=== PATIENT | female | born 1980 | race Caucasian/White ===

== ENCOUNTER → 2016-07-05 | Outpatient (CLI) | payer OTHER ==
[~2016-07-05] VITALS: Ht 170.2 cm; Wt 118.8 kg
[~2016-07-05] MED LIST: ALBUAER2 INH; BUSP15TA70 PO; CLOP1TAB5 PO; ESCI1TAB6 PO; HYDR-5688 PO; HYDR200T5 PO; PREG1CAP36 PO; PRENTAB26 PO; TOPI50TA16 PO
[2016-07-05 16:26] VITALS: BP 126/81; PULSE 87; Ht 170.2 cm; Wt 118.8 kg
== END | disposition home or self-care (01) ==
LOC: C.NEUR 14:55
PROVIDERS: ATTEND Internal Medicine Pulmonary Disease
DX: G47.30 Sleep apnea, unspecified (principal); J45.909 Unspecified asthma, uncomplicated

== ENCOUNTER → 2016-09-13 | Outpatient (CLI) | payer OTHER ==
[~2016-09-13] VITALS: Ht 171.5 cm; Wt 122.9 kg
[2016-09-13 13:55] VITALS: BP 138/82; PULSE 77; Ht 171.5 cm; Wt 122.9 kg
== END | disposition home or self-care (01) ==
LOC: C.NEUR 12:50
PROVIDERS: ATTEND Physician Assistant
DX: G47.33 Obstructive sleep apnea (adult) (pediatric) (principal)

== ENCOUNTER 2016-11-01 18:03 | Emergency (ER) | payer OTHER ==
[~2016-11-01] VITALS: Ht 170.2 cm; Wt 125.2 kg
[~2016-11-01 18:03] MED LIST changes: -BUSP15TA70 PO; -CLOP1TAB5 PO; -ESCI1TAB6 PO; -HYDR-5688 PO; -HYDR200T5 PO; -PREG1CAP36 PO; -TOPI50TA16 PO
[2016-11-01 18:17] VITALS: TEMP 36.6; Ht 170.2 cm; Wt 125.2 kg
[2016-11-01] MEDS ORDERED: PREG1CAP36 PO (18:29)
[2016-11-01] MEDS ORDERED: HYDR200T5 PO (18:29)
[2016-11-01] MEDS ORDERED: CLOP1TAB5 PO (18:29)
[2016-11-01] MEDS ORDERED: ESCI1TAB6 PO (18:29)
[2016-11-01] MEDS ORDERED: TOPI50TA16 PO (18:29)
[2016-11-01] MEDS ORDERED: BUSP15TA70 PO (18:29)
[2016-11-01] MEDS ORDERED: ONDANSETRON INJ 2 MG/ML 2 ML VIAL IV STA (18:46)
[2016-11-01] MEDS ORDERED: MoRPHine SULFATE 4 MG/ML 1 ML CARP\\VIAL IV STA (18:46)
--- NOTE | 2016-11-01 19:41 | DIAGNOSTIC IMAGING REPORT ---
HEAD CT NONCONTRAST CT DOSE: HISTORY: R orbital pain; struck with baseball cap visor TECHNIQUE: Multiaxial CT images of the head were performed without the use of intravenous contrast. Comparison: None. Findings: The paranasal sinuses and mastoid air cells are clear. The calvarium and skull base are intact. The ventricles and sulci are within normal limits. There is no mass, hematoma, midline shift, or acute infarct. Impression: No acute intracranial abnormality. Electronically signed by: Kobe Traylor M.D. 11/01/2016 7:40 PM Dictated Date/Time: 11/01/2016 7:39 PM
--- NOTE | 2016-11-01 19:43 | DIAGNOSTIC IMAGING REPORT ---
MAXILLOFACIAL CT CT DOSE: 751.95 mGy.cm HISTORY: Trauma. Pain. R orbital pain; struck with baseball cap visor TECHNIQUE: Multiaxial CT images of the maxillofacial region were performed and reformatted in the coronal plane without the use of contrast. COMPARISON: None. FINDINGS: The visualized cervical spine, skull base, pterygoid plates, nasal bones, lamina papyracea, orbital floors, mandible, and zygomatic arches are intact. No fractures. The orbits are unremarkable. IMPRESSION: No fractures within the maxillofacial region. Electronically signed by: Kobe Traylor M.D. 11/01/2016 7:42 PM Dictated Date/Time: 11/01/2016 7:42 PM
[2016-11-01] MEDS ORDERED: NORCO 5/325MG HOME PACK PO ONE (20:45)
[2016-11-01] MEDS ORDERED: HYDR-5688 PO (20:50)
[2016-11-01 20:55] VITALS: BP 110/61; PULSE 72; O2SAT 94
--- NOTE | 2016-11-02 00:59 | EMERGENCY ROOM VISIT NOTE ---
ED Visit Note First contact with patient: 18:23 Chief Complaint: Right eye pain. History of Present Illness: Mr. Calderon is a 36-year-old white female who ambulates into the ED accompanied by female friend complaining of right eye and orbit pain. Patient reports approximately 30 minutes ago she was playing with her son on the floor. He was wearing a baseball cap and when he was running towards her the baseball cap bill she struck her in the right eye and orbit. She reports since that time she has been having moderate to severe pain in the left eye and orbit. Currently she describes her pain as a throbbing sensation. She rates her discomfort 5/10. Her pain is nonradiating. Her pain worsens with palpation around the orbit and exposure to bright lights. She has not identified any alleviating factors related to the pain. She reports she has not taken any medications for pain prior to arrival at the hospital. Associated with her pain she reports she's been having light sensitivity and tearing. She also reports initially after the injury she did have a floater in the lower eye abdul that has subsequently resolved. She denies headache, decrease in vision, dizziness, lightheadedness, nausea, vomiting, difficulty walking/coordinating body movements. Review of Systems: As noted above in history of present illness. 8 body systems were reviewed and found to be negative as noted above. Past Medical History: Asthma, bronchitis, HELLP syndrome, fibromyalgia, sleep apnea, migraine headaches, depression, anxiety antiphospholipid syndrome, hemochromatosis, psoriatic arthropathy, status post left knee arthroplasty, section and wisdom teeth extraction. Current Medications: Plaquenil, Plavix, buspirone, Lexapro, Topamax, Lyrica Allergies to Medications: Triptans. Social History: Patient is currently employed; she feels safe in her home environment; she denies tobacco and alcohol use. Physical Examination: Vital Signs: Date Time Temp Pulse Resp B/P Pulse Ox O2 Delivery O2 Flow Rate FiO2 11/01/16 20:55 72 18 110/61 94 Room Air 11/01/16 20:20 85 20 119/78 97 Room Air 11/01/16 18:17 36.6 82 18 119/83 97 GENERAL: 36-year-old female in mild to moderate distress due to pain, nontoxic- appearing, afebrile and hemodynamically stable. NEUROLOGICAL: Awake, alert and oriented to person, place and time. Answering questions appropriately and following commands. Normal gait. Good hand eye coordination. No focal motor or sensory deficits. SKIN: Warm, dry and pink. No soft tissue eruptions or trauma noted. HEENT: Atraumatic and normocephalic. Skull: No bony deformity, tenderness, swelling or ecchymosis. No raccoon's eyes or carranza signs. No drainage from the ears of the nostril; no hemotympanum. Face: Moderate tenderness throughout the right orbit with no bony deformity or crepitus. PERRLA. EOMI without nystagmus. Sclera mildly injected on the right. Drainage of clear tear on the right. No foreign bodies noted under the eyelids are embedded in the cornea. Anterior chamber is clear. On slit lamp examination with staining no uptake of the dye was seen throughout the cornea. Airway patent. No malocclusion. Speech is clear. ED Course: Patient is assessed as noted above. Alcaine was used to anesthetize the eyes for examination. While performing my evaluation patient reports she became lightheaded and nauseated and are in the same time. She reported a mild increase in pain. An IV lock was initiated and patient was hydrated with normal saline. She received 3 mg of morphine IV for pain and 4 mg of Zofran IV for nausea. Facial CT: Was reviewed by myself and read by the radiologist showing no acute fractures. Head CT: Was reviewed by myself and read by the radiologist showing no acute intracranial abnormalities or skull fractures. Patient was reassessed. Patient's case was reviewed with Dr. Martínez; we agreed on diagnostic approach, treatment, disposition and plan. Clinical Impression: Right orbit pain. Decision-Making: Initially my differential diagnosis I considered orbit fracture , corneal abrasion, retinal detachment, ruptured globe, muscle injury and other causes. Disposition: Patient discharged home in stable condition accompanied by female friends; prior to departure she was reassessed and subjectively reported she was feeling much better and rated her discomfort 1/10. Plan: Comfort measures were discussed with the patient including the use of ice and a sliding pain medication scale of ibuprofen, acetaminophen and [place]; she was given appropriate narcotic precautions and her name was checked in his [facility] database and no red flags were noted. Patient was encouraged to follow-up with family physician for recheck in 3-4 days. Patient was encouraged return to the ED for worsening/uncontrolled pain, uncontrolled swelling, visual changes, headaches, fevers, difficulty to arouse from sleep, abnormal neurological symptoms or any new/concerning symptoms.
== END 2016-11-01 21:09 | disposition home or self-care (01) ==
LOC: C.EDB 18:05 → C.EDD 21:09
DX: H57.11 Ocular pain, right eye (principal); J45.909 Unspecified asthma, uncomplicated; M79.7 Fibromyalgia; G47.30 Sleep apnea, unspecified; F33.41 Major depressive disorder, recurrent, in partial remission; D68.61 Antiphospholipid syndrome; E83.119 Hemochromatosis, unspecified

== ENCOUNTER → 2017-01-24 | Outpatient (CLI) | payer OTHER ==
[~2017-01-24] MED LIST changes: -ALBUAER2 INH; +BUSP15TA70 PO; +CLOP1TAB5 PO; +ESCI1TAB6 PO; +HYDR-5688 PO; +HYDR200T5 PO; +PREG1CAP36 PO; -PRENTAB26 PO; +TOPI50TA16 PO
[2017-01-24 13:53] LABS: ALT/SGPT 44 U/L (12-78); AST/SGOT 23 U/L (15-37); BLOOD UREA NITROGEN 13 mg/dl (7-18); BUN/CREATININE RATIO 11.8 (10-20); CALCIUM 8.6 mg/dl (8.5-10.1); CARBON DIOXIDE 26 mmol/L (21-32); CHLORIDE 111 mmol/L (98-107); GLUCOSE 86 mg/dl (70-99); SODIUM 142 mmol/L (136-145)
[2017-01-24 13:55] LABS: ALB/GLOB RATIO 0.9 (0.9-2); ALKALINE PHOSPHATASE 48 U/L (45-117); CHOLESTEROL 199 mg/dl (0-200); CHOLESTEROL/HDL RATIO 5.4; HDL CHOLESTEROL 37 mg/dl; LDL CHOLESTEROL CALCULATED 134 mg/dl; TRIGLYCERIDES 138 mg/dl (0-150); VERY LOW DENSITY LIPOPROT CALC 28 mg/dl
== END | disposition home or self-care (01) ==
LOC: C.LAB 11:58
PROVIDERS: ATTEND Nurse Practitioner Family
DX: E78.5 Hyperlipidemia, unspecified (principal)

== ENCOUNTER → 2017-02-22 | Outpatient (CLI) | payer OTHER ==
--- NOTE | 2017-02-22 17:29 | DIAGNOSTIC IMAGING REPORT ---
LEFT KNEE 1 OR 2 VIEWS ROUTINE CLINICAL HISTORY: Left knee pain. COMPARISON: None FINDINGS: Alignment of the left knee is anatomic. No fracture or suspicious osseous lesion is present. There is a possible small left knee joint effusion. There is spurring of the superior pole of the patella at insertion of quadriceps. There is mild osteophytosis within the medial compartment. Joint spaces are preserved. IMPRESSION: 1. No acute fracture. 2. Preserved joint spaces with mild osteophytosis of the medial compartment. 3. Possible small left knee joint effusion. Electronically signed by: Jeff Ramires M.D. 02/22/2017 5:28 PM Dictated Date/Time: 02/22/2017 5:27 PM
--- NOTE | 2017-02-22 17:33 | DIAGNOSTIC IMAGING REPORT ---
CERVICAL SPINE 2 OR 3 VIEWS CLINICAL HISTORY: Neck pain. COMPARISON STUDY: No previous studies for comparison. FINDINGS: Visualization of the cervical spine is adequate. There is mild disc space narrowing at C6-C7. There is mild anterior osteophytosis. Facet joints are intact. No fracture or suspicious lesion is present. IMPRESSION: 1. No acute cervical spine fracture or subluxation. 2. Mild multilevel degenerative disc disease most pronounced at C6-C7. Electronically signed by: Jeff Ramires M.D. 02/22/2017 5:32 PM Dictated Date/Time: 02/22/2017 5:31 PM
--- NOTE | 2017-02-22 17:35 | DIAGNOSTIC IMAGING REPORT ---
L-SPINE MIN 4 VIEWS ROUTINE CLINICAL HISTORY: Lower back pain. COMPARISON: None FINDINGS: Bilateral renal calculi measure up to 5 mm. Alignment of the lumbar spine is anatomic. Vertebral body heights are maintained. There is no fracture or suspicious lesion. There is mild disc space narrowing at L5-S1. IMPRESSION: 1. No acute lumbar spine fracture. 2. Mild multilevel degenerative disc disease and facet arthrosis of the lumbar spine. Mild disc space narrowing at L5-S1. Minimal disc space narrowing at L4-L5. 3. Bilateral nephrolithiasis. Electronically signed by: Jeff Ramires M.D. 02/22/2017 5:34 PM Dictated Date/Time: 02/22/2017 5:32 PM
== END | disposition home or self-care (01) ==
LOC: C.RADBC 16:36
PROVIDERS: ATTEND Nurse Practitioner Family
DX: M54.5 Low back pain (principal); M54.2 Cervicalgia; M25.562 Pain in left knee